=== PATIENT | female | born 1990 | race African-American/Black ===

== ENCOUNTER 2019-05-27 11:28 | Inpatient (IN) | payer OTHER ==
[~2019-05-27] VITALS: Ht 175.3 cm; Wt 115.7 kg
[2019-05-27 11:56] LABS: EOSINOPHILS % (AUTO) 0.1 % (1.0-6.0); HEMATOCRIT 37.7 % (36-46); LYMPHOCYTES % (AUTO) 17.7 % (22.0-44.0); MEAN CORPUSCULAR HEMOGLOBIN 26.7 pg (26.0-34.0); MEAN CORPUSCULAR HGB CONC 31.9 G/dL (31.0-37.0); MEAN CORPUSCULAR VOLUME 84 fL (80-100); MONOCYTES # (AUTO) 0.5 K/uL (0.1-1.0); MONOCYTES % (AUTO) 4.1 % (2.0-9.0); NEUTROPHILS # (AUTO) 8.8 K/uL (1.8-7.7); NEUTROPHILS % (AUTO) 77.1 % (40.0-70.0); PLATELET COUNT (AUTO) 328 K/uL (150-450); RED CELL DISTRIBUTION WIDTH 14.7 % (11.5-14.5)
[2019-05-27 12:13] LABS: ALANINE AMINOTRANSFERASE 16 U/L (12-78); ALBUMIN 3.7 g/dL (3.4-5.0); ALKALINE PHOSPHATASE 89 U/L (46-116); ANION GAP 12 mmol/L (8-16); ASPARTATE AMINOTRANSFERASE 16 U/L (15-37); BILIRUBIN,TOTAL 0.3 mg/dL (0.1-1.0); CALCIUM, TOTAL 9.2 mg/dL (8.8-10.5); CARBON DIOXIDE 21 mmol/L (22-29); CHLORIDE 106 mmol/L (98-107); CREATININE 0.87 mg/dL (0.60-1.30); GLOMERULAR FILTR. RATE CALC > 60 mL/min (>60); GLUCOSE,RANDOM 97 mg/dL (70-110); SODIUM SERUM 139 mmol/L (136-145); TOTAL PROTEIN, SERUM 7.4 g/dL (6.4-8.2); UREA NITROGEN, BLOOD 13 mg/dL (7-18)
[2019-05-27 12:18] LABS: ACETAMINOPHEN < 2 mcg/mL (10-30)
[2019-05-27] MEDS ORDERED: ESCI10TA PO (12:18)
[2019-05-27 12:26] LABS: AMPHET/METH SCREEN,URINE NEGATIVE (NEGATIVE); BARBITURATE SCREEN, URINE NEGATIVE (NEGATIVE); BENZODIAZEPINES SCREEN,URINE NEGATIVE (NEGATIVE); CANNABINOID SCREEN,URINE POSITIVE (NEGATIVE); COCAINE SCREEN,URINE NEGATIVE (NEGATIVE); METHADONE SCREEN, URINE NEGATIVE (NEGATIVE); OPIATE SCREEN,URINE NEGATIVE (NEGATIVE)
[2019-05-27 12:28] LABS: PHENCYCLIDINE SCREEN,URINE NEGATIVE (NEGATIVE)
[2019-05-27] MEDS ORDERED: POTASSIUM CHLORIDE 20 MEQ ER TABLET PO ONE ×2 (13:45→20:45)
[2019-05-27] MEDS ORDERED: HALOPERIDOL 5 MG TABLET PO PRN (17:15)
[2019-05-27 17:43] LABS: APPEARANCE,URINE CLEAR (CLEAR); BILIRUBIN,URINE NEGATIVE (NEGATIVE); GLUCOSE, URINE (UA) NEGATIVE (NEGATIVE); KETONES,URINE NEGATIVE (NEGATIVE); LEUKOCYTE ESTERASE ,URINE NEGATIVE (NEGATIVE); NITRATE,URINE NEGATIVE (NEGATIVE); OCCULT BLOOD,URINE NEGATIVE (NEGATIVE); PROTEIN,URINE NEGATIVE (NEGATIVE); UROBILINOGEN,URINE 0.2 mg/dL (<=1.0)
[2019-05-27] MEDS ORDERED: NICOTINE 14 MG/24 HOUR PATCH TD PRN (19:15)
[2019-05-27] MEDS ORDERED: MAG HYDROX/AL HYDROX/SIMETH ES 30 ML SUSPENSION UDCUP PO PRN (19:15)
[2019-05-27] MEDS ORDERED: ONDANSETRON HCL 4 MG/2 ML VIAL IM ONE (19:15)
[2019-05-27] MEDS ORDERED: LOPERAMIDE HCL 2 MG CAPSULE PO PRN (19:15)
[2019-05-27] MEDS ORDERED: GuaiFENesin/D-METHORPHAN [SUGAR-FREE] 200-20MG/10 ML SYRUP UDCUP PO PRN (19:15)
[2019-05-27] MEDS ORDERED: ONDANSETRON HCL 4 MG TABLET PO PRN (19:15)
[2019-05-27] MEDS ORDERED: CloNIDine HCL 0.1 MG TABLET PO PRN (19:15)
[2019-05-27] MEDS ORDERED: PETROLATUM,WHITE 28 GM JELLY TP PRN (19:15)
[2019-05-27] MEDS ORDERED: DOCUSATE SODIUM 100 MG CAPSULE PO PRN (19:15)
[2019-05-27] MEDS ORDERED: MAGNESIUM HYDROXIDE SUSPENSION 30 ML UDCUP PO PRN (19:15)
[2019-05-27] MEDS ORDERED: ACETAMINOPHEN 325 MG TABLET PO PRN (19:15)
[2019-05-27] MEDS ORDERED: ALBUTEROL SULFATE HFA 90 MCG/PUFF 8 GM INHALER IH PRN (19:15)
[2019-05-27] MEDS ORDERED: IBUPROFEN 400 MG TABLET PO PRN (19:15)
[2019-05-27 19:30] VITALS: BP 129/71
[2019-05-27 20:30] VITALS: BP 114/84
[2019-05-27] MEDS: ZOLPIDEM TARTRATE 10 MG TABLET PO PRN (21:11)
[2019-05-27 21:30] VITALS: BP 121/74
[2019-05-27 22:30] VITALS: BP 114/72
[2019-05-28] VITALS (7 sets, daily range): BP systolic 117–140; BP diastolic 73–97
[2019-05-28 07:33] LABS: BASOPHILS % (AUTO) 0.4 % (0.0-2.0); EOSINOPHILS % (AUTO) 1.2 % (1.0-6.0); HEMATOCRIT 35.8 % (36-46); HEMOGLOBIN 11.2 g/dL (12.0-16.0); LYMPHOCYTES # (AUTO) 3.5 K/uL (1.0-4.8); MEAN CORPUSCULAR HEMOGLOBIN 26.7 pg (26.0-34.0); MEAN CORPUSCULAR HGB CONC 31.4 G/dL (31.0-37.0); MEAN CORPUSCULAR VOLUME 85 fL (80-100); MONOCYTES # (AUTO) 0.7 K/uL (0.1-1.0); MONOCYTES % (AUTO) 6.4 % (2.0-9.0); NEUTROPHILS # (AUTO) 6.6 K/uL (1.8-7.7); PLATELET COUNT (AUTO) 291 K/uL (150-450); RED BLOOD CELL COUNT(AUTO) 4.21 MIL/uL (4.00-5.20)
[2019-05-28 07:38] LABS: HEMOGLOBIN A1C 5.6 % (4.5-6.2)
[2019-05-28 08:32] LABS: ALANINE AMINOTRANSFERASE 16 U/L (12-78); ALBUMIN 3.1 g/dL (3.4-5.0); ALKALINE PHOSPHATASE 73 U/L (46-116); ANION GAP 11 mmol/L (8-16); ASPARTATE AMINOTRANSFERASE 18 U/L (15-37); BILIRUBIN,TOTAL 0.5 mg/dL (0.1-1.0); CALCIUM, TOTAL 8.7 mg/dL (8.8-10.5); CARBON DIOXIDE 22 mmol/L (22-29); CHLORIDE 108 mmol/L (98-107); CHOL/HDL RATIO 3.7 (3.9-5.7); CHOLESTEROL 155 mg/dL (131-200); CREATININE 0.98 mg/dL (0.60-1.30); GLOMERULAR FILTR. RATE CALC > 60 mL/min (>60); GLUCOSE,RANDOM 67 mg/dL (70-110); HDL CHOLESTEROL 42 mg/dL (40-60); LDL CHOL (CALC.) 106 mg/dL (0-130); POTASSIUM 3.8 mmol/L (3.5-5.1); SODIUM SERUM 141 mmol/L (136-145); THYROID STIMULATING HORMONE 0.69 uIU/mL (0.36-3.74); TOTAL PROTEIN, SERUM 6.6 g/dL (6.4-8.2); TRIGLYCERIDES 34 mg/dL (15-150); UREA NITROGEN, BLOOD 9 mg/dL (7-18)
[2019-05-28] MEDS: ESCITALOPRAM OXALATE 20 MG TABLET PO SCH (11:04)
[2019-05-28] MEDS: LORazepam 2 MG TABLET PO PRN (21:11)
[2019-05-29 06:20] VITALS: BP 118/71
[2019-05-29 08:00] VITALS: BP 146/90
[2019-05-29] MEDS: ESCITALOPRAM OXALATE 20 MG TABLET PO SCH (08:21)
[2019-05-29 08:29] VITALS: BP 146/90
[2019-05-29] MEDS: LORazepam 2 MG TABLET PO PRN (15:00)
[2019-05-29 16:39] VITALS: BP 118/69
[2019-05-29] MEDS: ZOLPIDEM TARTRATE 10 MG TABLET PO PRN (21:53)
[2019-05-30 06:40] VITALS: BP 117/68
[2019-05-30 08:12] VITALS: BP 119/63
[2019-05-30] MEDS: ESCITALOPRAM OXALATE 20 MG TABLET PO SCH (08:39)
[2019-05-30] MEDS ORDERED: ESCI20TA PO (10:35)
[2019-05-30] MEDS ORDERED: ESCI20TA36 PO (15:24)
== END 2019-05-30 14:45 | disposition home or self-care (01) | DRG 885 ==
LOC: EMS 11:29 → B2S 17:29
DX: F33.2 Major depressive disorder, recurrent severe without psychotic features (principal); T50.902A Poisoning by unspecified drugs, medicaments and biological substances, intentional self-harm, initial encounter; F12.10 Cannabis abuse, uncomplicated; F10.129 Alcohol abuse with intoxication, unspecified; E87.6 Hypokalemia; R51 Headache; E66.9 Obesity, unspecified; D64.9 Anemia, unspecified; Z68.37 Body mass index [BMI] 37.0-37.9, adult; Z91.5 Personal history of self-harm; Z79.899 Other long term (current) drug therapy
CPT/HCPCS: 83036; 84132; 84439; 84443; 96372; G0480; G0481; J2405; Q0162